=== PATIENT | female | born 1985 | race Caucasian/White ===

== ENCOUNTER 2016-11-29 14:06 | Observation (INO) | payer OTHER ==
[~2016-11-29] VITALS: Ht 162.6 cm; Wt 60.3 kg
[2016-11-29] MEDS ORDERED: LISD50CA2 PO (14:28)
[2016-11-29 15:13] LABS: BLOOD UREA NITROGEN 6 mg/dL (7-18)
[2016-11-29 15:19] LABS: ASPARTATE AMINO TRANSFERASE 21 U/L (15-37)
[2016-11-29 15:20] LABS: ACETAMINOPHEN < 2 mcg/mL (10-30)
[2016-11-29 16:28] LABS: DAU SCREEN DISCLAIMER
[2016-11-29] MEDS ORDERED: ONDANSETRON ODT 4 MG PO PRN (18:00)
[2016-11-29] MEDS ORDERED: ACETAMINOPHEN 325 MG TABLET PO PRN (18:00)
[2016-11-29] MEDS ORDERED: POLYETHYLENE GLYCOL 17 GM PACKET PO PRN (18:00)
[2016-11-29] MEDS ORDERED: LORazepam 1MG TABLET PO PRN (18:00)
[2016-11-29] MEDS ORDERED: TRAZODONE 50MG TABLET PO PRN (18:00)
[2016-11-29] MEDS ORDERED: BISACODYL 10 MG SUPP PR PRN (18:00)
[2016-11-29 19:45] VITALS: BP 127/80
[2016-11-30 08:44] VITALS: BP 107/67
[2016-11-30] MEDS ORDERED: SENNA/DOCUSATE TABLET PO SCH (09:00)
== END 2016-11-30 17:47 ==
LOC: ED 16:21 → EDIP 17:10 → 3E 19:36
PROVIDERS: ADMIT Internal Medicine; ATTEND Internal Medicine
DX: R45.851 Suicidal ideations (principal); F32.9 Major depressive disorder, single episode, unspecified; F41.9 Anxiety disorder, unspecified; Z91.19 Patient's noncompliance with other medical treatment and regimen; N80.9 Endometriosis, unspecified; F19.94 Other psychoactive substance use, unspecified with psychoactive substance-induced mood disorder; F12.10 Cannabis abuse, uncomplicated; F17.210 Nicotine dependence, cigarettes, uncomplicated
CPT/HCPCS: 36415; 80053; 80307; 80329; 81003; 84439; 84443; 84703; 85025; 99285; G0378; G0480